=== PATIENT | female | born 1995 | race Caucasian/White ===

== ENCOUNTER 2016-04-22 18:48 | Emergency (ER) | payer OTHER ==
[2016-04-22 19:13] VITALS: RESP 16
[2016-04-22] MEDS ORDERED: IBUPROFEN 600 MG TAB PO ONE (19:15)
[2016-04-22] MEDS ORDERED: ACETAMINOPHEN 325 MG TAB PO ONE (19:15)
[2016-04-22] MEDS ORDERED: ONDANSETRON DISINTEGRATING 4 MG TAB ONE (19:35)
[2016-04-22] MEDS ORDERED: ONDANSETRON DISINTEGRATING 4 MG TAB PO ONE (19:40)
[2016-04-22] MEDS ORDERED: BENZOCAINE UNIT DOSE SPRAY HURRICAINE MM ONE (20:36)
[2016-04-22] MEDS ORDERED: DEXAMETHASONE 10 MG/ML VIAL PO ONE (20:44)
[2016-04-22] MEDS ORDERED: AMOXICILLIN/CLAVULANATE POT 875/125 MG TAB PO ONE ×2 (20:48→20:51)
[2016-04-22] MEDS ORDERED: HYDROCOD/APAP 7.5/325 IN 15ML UDCUP PO ONE (20:48)
[2016-04-22] MEDS ORDERED: HYDROCOD/APAP 5/325 PREPACK#6 BTL TAKEHOME ONE (20:52)
--- NOTE | 2016-04-22 20:52 | EDPHY ---
H & P Stated Complaint: THROAT PAIN 1 WK, SINUS PRESSURE Source: Patient Exam Limitations: No limitations - Personal History Current Tetanus/Diphtheria Vaccine: Yes Current Tetanus Diphtheria and Acellular Pertussis (TDAP): Yes - Medical/Surgical History Hx Asthma: No Hx Chronic Respiratory Disease: No Hx Diabetes: No Hx Cardiac Disease: No Hx Renal Disease: No Hx Cirrhosis: No Hx Alcoholism: No Hx HIV/AIDS: No Hx Splenectomy or Spleen Trauma: No Other PMH: EDILBERTO - Social History Smoking Status: Never smoked Time Seen by Provider: 04/22/16 19:05 HPI/ROS: CHIEF COMPLAINT: Sore throat HISTORY OF PRESENT ILLNESS: 21-year-old female presents emergency department complaining of a sore throat for the past 4 days. She denies fevers. Her throat is sore on the right side. Patient reports nasal congestion and sinus pressure for the past week. She feels very tired. Patient denies cough, chest pain, shortness of breath, nausea or vomiting. REVIEW OF SYSTEMS: A comprehensive 10 point review of systems is otherwise negative aside from elements mentioned in the history of present illness. (Antoinette Jimenez) - Physical Exam Exam: General: Alert, nontoxic. ENT: Tympanic membranes clear, external auditory canal, external ear and surrounding soft tissue including over the mastoid unremarkable. Nasopharynx is not injected, there is no rhinorrhea. Oropharynx with erythema, small amount of swelling to right posterior soft palate. There is exudate On right, right-sided tonsillar hypertrophy. The uvula is midline. No elevation of tongue. There is no hoarseness. No drooling, patient has good control of their oral secretions. No trismus. No stridor. Cardiac: Regular rate and rhythm. Respiratory: Lungs clear to auscultation bilaterally. Neurological: no meningismus. Skin: No rashes. (Antoinette Jimenez) Constitutional: Initial Vital Signs Temperature (C) 37.1 C 04/22/16 18:55 Heart Rate 90 04/22/16 18:55 Respiratory Rate 16 04/22/16 18:55 Blood Pressure 134/88 H 04/22/16 18:55 O2 Sat (%) 97 04/22/16 18:55 O2 Delivery Mode Room Air Allergies/Adverse Reactions: No Known Allergies Allergy (Unverified 04/22/16 19:13) Home Medications: Medication Instructions Recorded Amoxicillin/Clavulanate Pot 875 mg PO BID #20 tab 04/22/16 [Augmentin 875Mg] Hydrocodone/APAP 5/325 [[place] 1 tab PO Q4H PRN #10 tab 04/22/16 5/325] Medical Decision Making Procedures: Peritonsillar abscess drainage- Hurricaine spray to posterior pharynx, 18 gauge needle used to aspirate right peritonsillar abscess, no pus return, patient tolerated this well. (Antoinette Jimenez) ED Course/Re-evaluation: 21-year-old female with a tonsillitis versus early peritonsillar abscess. Peritonsillar abscess was attempted to be drained, there was no pus in return. Patient is discharged with a prescription for Augmentin. She is given 10 mg of Decadron in the emergency department and Lortab elix. Patient is given ENT to follow up with in the morning. She is given strict return precautions for worsening symptoms, difficulty swallowing, any new symptoms or concerns. (Antoinette Jimenez) Differential Diagnosis: Diagnosis considered but not limited to tonsillitis, strep pharyngitis, peritonsillar abscess (Antoinette Jimenez) Other Provider: PHYSICIAN DOCUMENTATION: The patient was evaluated and managed by the nurse practitioner and myself. I have reviewed the chart and agree with the findings and plan of care as documented. In addition, I examined the patient myself. History confirmed as sore throat worse on the right side. Physical findings as follows: No stridor or drooling, no trismus. There is fullness on the right peritonsillar region by uvula is midline and not deviated. Plan for antibiotics, steroids, ENT follow-up tomorrow. Possible early peritonsillar abscess, attempted needle aspiration without pus by Barbara. No evidence of airway compromise at this time. I am the secondary supervising physician. (Jeevan Pineda) - Data Points Laboratory Results: 04/22/16 04/22/16 04/22/16 Unknown 19:52 19:05 Influenza Typ A,B (DFA) NEGATIVE FOR FLU (NEGATIVE) Group A Strep Screen NEGATIVE (NEGATIVE) Group A Strep DNA Pending Medications Given: Discontinued Medications Acetaminophen (Tylenol) 650 mg PO EDNOW ONE Stop: 04/22/16 19:16 Last Admin: 04/22/16 19:10 Dose: 650 mg Hydrocodone Bitart/Acetaminophen (Hycet Oral Liquid) 15 ml PO EDNOW ONE Stop: 04/22/16 20:49 Last Admin: 04/22/16 21:01 Dose: 15 ml Hydrocodone Bitart/Acetaminophen ([place] 5/325mg Prepack#6) 1 btl TAKEHOME EDNOW ONE Stop: 04/22/16 20:53 Last Admin: 04/22/16 21:01 Dose: 1 btl Amoxicillin/Clavulanate Potassium (Augmentin 875mg) 875 mg PO EDNOW ONE PRN Reason: Protocol Stop: 04/22/16 20:49 Last Admin: 04/22/16 21:00 Dose: 875 mg Amoxicillin/Clavulanate Potassium (Augmentin 875mg) 875 mg PO EDNOW ONE PRN Reason: Protocol Stop: 04/22/16 20:52 Last Admin: 04/22/16 21:00 Dose: 875 mg Dexamethasone (Decadron Injection) 10 mg PO EDNOW ONE Stop: 04/22/16 20:45 Last Admin: 04/22/16 20:48 Dose: 10 mg Ibuprofen (Motrin) 600 mg PO EDNOW ONE Stop: 04/22/16 19:16 Last Admin: 04/22/16 19:25 Dose: 600 mg Ondansetron HCl (Zofran Odt) 4 mg PO EDNOW ONE Stop: 04/22/16 19:41 Last Admin: 04/22/16 19:41 Dose: 4 mg Departure - Departure Disposition: Home, Routine, Self-Care Clinical Impression: Tonsillitis Condition: Good Instructions: Hydrocodone/Acetaminophen (By mouth), Tonsillitis (ED) Additional Instructions: Take Augmentin 875 mg twice daily for 10 days, take 600 mg of ibuprofen every 8 hours with food for 3-5 days, take [place] for severe pain every 6 hours as needed. This is a narcotic, it will cause drowsiness, do not drive or operate any machinery while taking this. Follow up with the Ear Nose and Throat doctor tomorrow, call 1st thing in the morning to schedule this appointment. Return to the emergency department tonight for any difficulty breathing, difficulty swallowing, any worsening symptoms, questions or concerns. Referrals: Jose Manuel Roman MD [Medical Doctor] - As per Instructions (ENT on-call) Prescriptions: Amoxicillin/Clavulanate Pot [Augmentin 875Mg] 875 mg PO BID #20 tab Hydrocodone/APAP 5/325 [[place] 5/325] 1 tab PO Q4H PRN #10 tab PRN Reason: Pain, Moderate
[2016-04-22 21:11] VITALS: BP 132/81; PULSE 75; TEMP 98.4; O2SAT 99
== END 2016-04-22 21:11 | disposition home or self-care (01) ==
PROC: 0C9P3ZZ Drainage of Tonsils, Percutaneous Approach (ICD-10-PCS; principal; 2016-04-22)
DX: J03.90 Acute tonsillitis, unspecified (principal)

== ENCOUNTER 2016-04-25 09:53 | Emergency (ER) | payer OTHER ==
[2016-04-25] MEDS ORDERED: NS 1,000 ML IV ONE (10:26)
[2016-04-25] MEDS ORDERED: DEXAMETHASONE 10 MG/ML VIAL IVP ONE (10:26)
[2016-04-25] MEDS ORDERED: CLINDAMYCIN 600 MG/DEXTROSE 50 ML IV ONE (10:27)
--- NOTE | 2016-04-25 10:31 | EDPHY ---
General - History Smoking Status: Never smoked Narrative: CHIEF COMPLAINT: sore throat, shortness of breath, facial swelling HISTORY OF PRESENT ILLNESS: sore throat that started nearly a week ago. She has primarily pain on the right side at the time that has significantly progressed from mild to severe. Difficulty swallowing due to pain and swelling. No fever. No chest pain. No headache. No neck pain or stiffness. She was seen here on the , we diagnosed her with pharyngitis. She was treated with an attempted needle aspiration with minimal return, and discharged home with Augmentin and pain medication. She took those attempted to follow up with ENT on Tuesday, they had no appointments until Tuesday. She says that her symptoms have significantly worsened to this point. No other associated complaints or modifying factors. REVIEW OF SYSTEMS: Ten systems reviewed and are negative unless otherwise noted in the HPI PERTINENT MEDICAL HISTORY: Acute pharyngitis EXAMINATION General Appearance: Alert, no distress Head: normocephalic, atraumatic Eyes: Pupils equal and round, no conjunctival pallor or injection ENT, Mouth: Mucous membranes moist. Trismus. No drooling. Uvula is deviated to the left. There is significant erythema and edema with appearance of abscess on the right tonsillar region. The airway remains patent but is decreased in Diameter. Neck: Normal inspection, supple, non-tender . Anterior lymphadenopathy. Respiratory: Lungs are clear to auscultation . No wheezing, rhonchi or crackles. Cardiovascular: Regular rate and rhythm . No murmur. Pulses intact distally. Gastrointestinal: Abdomen is soft and nontender . No splenomegaly Neurological: A&O, nonfocal, normal gait Skin: Warm and dry, no rash or petechiae Extremities: Nontender, no pedal edema Psychiatric: Mood and affect normal DIFFERENTIAL DIAGNOSES: Including but not limited to peritonsillar abscess, strep pharyngitis, pharyngitis, MDM: 10:25 a.m. right-sided peritonsillar abscess with moderate trismus. She is managing her airway without complication or supplementation. Her vital signs are stable. She has been here once for this this week, we attempted needle aspiration at that time. I will page ear Nose and Throat for their assistance. I placed IV, IV fluid, Decadron and clindamycin. 10:35 a.m. I have discussed the case with the on-call Ear Nose and Throat PA Rufino Barrera. He says that he would be happy to see the patient, but he is requesting that we obtain a CT scan of the neck soft tissue given the previous attempt. He will come evaluate the patient in the emergency department 11:15 a.m. notified by radiologist of the CT findings. The right-sided peritonsillar abscess is 2.5 x 2.5 cm. No involvement below the hyoid. Epiglottis is normal. There is noted a left side, very small peritonsillar abscess as well. This is sub cm. ENT has been notified and they are in the hospital and will see her shortly. 12:05 p.m. notified by ENT SERENA Barrera that he has successfully completed the procedure. Discharged home with Decadron 8 mg by mouth once daily for 2 days, then 4 mg once daily for 2 days. Clindamycin 300 mg every 8 hours. Pain medication as needed. Follow up in their clinic tomorrow. She already has an appointment in the morning with Dr. Roman. She will be discharged home in stable condition, airway patent and in no acute distress. I have also discussed this with her mother with her permission and answered all of her mother's questions well. SUPERVISION: This patient was independently evaluated without the aide of supervising physician. ENT emergency department consultation (Rm Walker) Medical Decision Making: I did not see this patient while she was in the emergency department. However her care was discussed with the PA while the patient was in the department. Agree with treatment plan management (Rigoberto Stock) - Objective Vital Signs: Initial Vital Signs Temperature (C) 36.9 C 04/25/16 09:55 Heart Rate 92 04/25/16 09:55 Respiratory Rate 18 04/25/16 09:55 Blood Pressure 108/73 04/25/16 09:55 O2 Sat (%) 97 04/25/16 09:55 O2 Delivery Mode Room Air Allergies/Adverse Reactions: No Known Allergies Allergy (Verified 04/25/16 09:58) Home Medications: Medication Instructions Recorded Amoxicillin/Clavulanate Pot 875 mg PO BID #20 tab 04/22/16 [Augmentin 875Mg] Hydrocodone/APAP 5/325 [[place] 1 tab PO Q4H PRN #10 tab 04/22/16 5/325] Clindamycin 300 mg PO Q8 #60 cap 04/25/16 Dexamethasone [Decadron 4 MG (*)] 1 tab PO AD #6 tab 04/25/16 oxyCODONE HCL/ACETAMINOPHEN 1 each PO Q4-6PRN PRN #15 tablet 04/25/16 [Percocet 5-325 mg Tablet] Medications Given: Discontinued Medications Dexamethasone (Decadron Injection) 10 mg IVP EDNOW ONE Stop: 04/25/16 10:27 Last Admin: 04/25/16 10:55 Dose: 10 mg Clindamycin Phosphate/Dextrose (Cleocin 600 Mg (Premix)) 50 mls @ 100 mls/hr IV EDNOW ONE PRN Reason: Protocol Stop: 04/25/16 10:56 Last Admin: 04/25/16 10:55 Dose: 50 mls Sodium Chloride (Ns) 1,000 mls @ 0 mls/hr IV ONCE ONE PRN Reason: Wide Open Stop: 04/25/16 10:27 Last Admin: 04/25/16 10:50 Dose: 1,000 mls Morphine Sulfate (Morphine) 4 mg IVP EDNOW ONE Stop: 04/25/16 10:43 Last Admin: 04/25/16 10:55 Dose: 4 mg Ondansetron HCl (Zofran) 4 mg IVP EDNOW ONE Stop: 04/25/16 10:43 Last Admin: 04/25/16 10:55 Dose: 4 mg Departure - Departure Disposition: Home, Routine, Self-Care Clinical Impression: Peritonsillar abscess Condition: Good Instructions: Peritonsillar Abscess (ED) Additional Instructions: Medications as discussed. Follow up with her established ENT physician tomorrow morning as scheduled. Return to ER for worsening pain, trismus, drooling or persistent fever Referrals: SYBIL GOTTLIEB [Other] - As per Instructions Jose Manuel Roman MD [Medical Doctor] - As per Instructions Stand Alone Forms: School Excuse Prescriptions: Clindamycin 300 mg PO Q8 #60 cap Dexamethasone [Decadron 4 MG (*)] 1 tab PO AD #6 tab oxyCODONE HCL/ACETAMINOPHEN [Percocet 5-325 mg Tablet] 1 each PO Q4-6PRN PRN # 15 tablet PRN Reason: Pain, Breakthrough
[2016-04-25] MEDS ORDERED: ONDANSETRON 4 MG/2 ML VIAL IVP ONE (10:42)
[2016-04-25] MEDS ORDERED: IOPAMIDOL (ISOVUE-300) 100 ML BTL IV ONE (10:53)
--- NOTE | 2016-04-25 12:57 | GCON ---
[f rep st] CONSULTATION HISTORY OF PRESENT ILLNESS: This is a 21-year-old female with a sore throat that started about 1 we ek ago. She states that the pain is mainly on the right side. Patient was in the emergency room on and diagnosed with pharyngitis. There was concern for a possible right-sided [employer] and a needle aspiration was attempted by the emergency room without successful purulent return. The patient was discharged home with Augmentin and pain medication. She returns today with continued right-sided pa in and further swelling. She notes difficulty sleeping. She notes difficulty opening her mouth. N o history of throat problems. Given failed attempted drainage in the past, the emergency room obtai nancy CT scan of the neck which showed a right-sided peritonsillar abscess measuring 2.8 x 2.2 cm. Th ere is a questionable left-sided peritonsillar abscess as well, measuring 1.4 x 0.8 cm. ENT is cons ulted for drainage. PHYSICAL EXAMINATION: GENERAL: This is a 21-year-old female in no acute distress. HEAD: Normocep halic and atraumatic. THROAT: Voice is muffled but no stridor. Oropharynx shows uvula deviated to the left with significant bulging of the right soft palate. She has purulence draining from this a george on initial examination. NECK: Tender lymphadenopathy bilaterally. PROCEDURE: After informed consent was obtained from the patient, Hurricaine spray was used for topi [place] anesthesia. 1.5 cc lidocaine with epinephrine were used for local anesthesia. 18-gauge needle was then used to aspirate approximately 4 cc of purulence. A 15 blade needle was then used to make incision. Curved hemostats were then used to the abscess cavity. Significant purulent r eturn was obtained. The patient tolerated procedure well. ASSESSMENT AND PLAN: This is a 21-year-old female with a right-sided peritonsillar abscess with que stionable left-sided small fluid collection. On exam, the left side is normal. Incision and draina ge was performed in the emergency room today with significant right-sided purulent return. The kim ent will be discharged home on clindamycin as well as a 4-day Decadron taper and Percocet for pain c ontrol. She has an ENT follow up tomorrow morning in our office. 1. Clindamycin 300 mg t.i.d. for 10 days. 2. Decadron 8 mg for 2 days and then 4 mg for 2 days. 3. The patient should follow up with ENT as scheduled tomorrow morning. Thanks so much allowing us to participate in the care of this patient. If you have any further ques tions, please do not hesitate to contact my office. /[id number]
[2016-04-25 13:18] VITALS: RESP 16; O2SAT 98
[2016-04-25 13:19] VITALS: BP 112/69; PULSE 69; TEMP 97.9
== END 2016-04-25 13:19 | disposition home or self-care (01) ==
DX: J36 Peritonsillar abscess (principal)
CPT/HCPCS: 82947-QW; 96365; J2405; Q9967